=== PATIENT | female | born 1960 | race Caucasian/White ===

== ENCOUNTER → 2017-08-17 | Outpatient (CLI) | payer MEDICAID | END | disposition home or self-care (01) | LOC: RAD 10:15 | PROVIDERS: ATTEND Family Medicine | DX: M79.672 Pain in left foot (principal) ==

== ENCOUNTER → 2017-08-24 | Outpatient (CLI) | payer MEDICAID | END | disposition home or self-care (01) | LOC: CFH 09:39 | PROVIDERS: ATTEND Family Medicine | DX: Z12.31 Encounter for screening mammogram for malignant neoplasm of breast (principal); Z80.3 Family history of malignant neoplasm of breast | CPT/HCPCS: 77067 ==

== ENCOUNTER 2017-11-15 12:25 | Emergency (ER) | payer MEDICAID, OTHER ==
[~2017-11-15] VITALS: Ht 162.6 cm; Wt 55.2 kg
[2017-11-15 12:33] VITALS: BP 160/97
[2017-11-15] MEDS ORDERED: IBUPROFEN 200 MG TABLET ONE (13:24)
[2017-11-15] MEDS ORDERED: IBUPROFEN 200 MG TABLET PO ONE (13:30)
== END 2017-11-15 13:43 | disposition home or self-care (01) ==
LOC: ED 13:30
DX: S93.602A Unspecified sprain of left foot, initial encounter (principal); F17.200 Nicotine dependence, unspecified, uncomplicated; X58.XXXA Exposure to other specified factors, initial encounter; Y93.89 Activity, other specified; Y99.8 Other external cause status; Y92.89 Other specified places as the place of occurrence of the external cause
CPT/HCPCS: 99284

== ENCOUNTER 2019-07-14 12:05 | Day surgery (SDC) | payer MEDICAID, OTHER ==
[~2019-07-14] VITALS: Ht 162.6 cm; Wt 59.5 kg
[~2019-07-14 12:05] MED LIST: LISI-167 PO
[2019-07-14] MEDS ORDERED: CHLORHEXIDINE 15 ML UDC MM STA (12:21)
[2019-07-14 12:25] VITALS: BP 161/117
[2019-07-14] MEDS ORDERED: LACTATED RINGERS 1,000 ML IV ONE (12:30)
[2019-07-14] MEDS ORDERED: LIDOCAINE-MPF 1%, 2ML INFIL ONE (12:30)
[2019-07-14 13:54] VITALS: BP 158/96
[2019-07-14] MEDS ORDERED: BUPIVACAINE/PF-EPI 0.5% 1:200K ONE (15:20)
[2019-07-14] MEDS ORDERED: DEXAMETHASONE 4 MG/ML, 1ML ONE (15:33)
[2019-07-14] MEDS ORDERED: PROPOFOL 10 MG/ML, 20ML ONE (15:33)
[2019-07-14] MEDS ORDERED: CEFAZOLIN 1,000 MG ONE (15:33)
[2019-07-14] MEDS ORDERED: ONDANSETRON 2MG/ML, 2ML ONE (15:33)
[2019-07-14] MEDS ORDERED: MIDAZOLAM 1 MG/ML, 2ML ONE (15:34)
[2019-07-14] MEDS ORDERED: FENTANYL PF 100 MCG/2ML IV PRN (16:00)
[2019-07-14] MEDS ORDERED: OXYcodone 5 MG/5 ML ORAL.SOL UDC PO PRN (16:00)
[2019-07-14] MEDS ORDERED: LABETALOL 5MG/ML, 20ML IV PRN (16:00)
[2019-07-14] MEDS ORDERED: hydrALAzine 20 MG/ML, 1ML IV PRN (16:00)
[2019-07-14] MEDS ORDERED: ACETAMINOPHEN 325 MG TABLET PO PRN (16:00)
[2019-07-14] MEDS ORDERED: ONDANSETRON 2MG/ML, 2ML IVPush PRN (16:00)
== END 2019-07-14 17:35 | disposition home or self-care (01) ==
LOC: OUT 12:05
PROVIDERS: ATTEND Podiatrist Foot & Ankle Surgery
DX: L91.0 Hypertrophic scar (principal); Z11.59 Encounter for screening for other viral diseases; I10 Essential (primary) hypertension
CPT/HCPCS: 11421; 88300; 93005; J0690; J1100; J2250; J2405; J2704; J7120; U0001

== ENCOUNTER 2020-06-28 12:05 | Emergency (ER) | payer MEDICAID ==
[~2020-06-28] VITALS: Ht 162.6 cm; Wt 56.5 kg
[2020-06-28 12:26] VITALS: BP 160/101
== END 2020-06-28 13:48 | disposition home or self-care (01) ==
LOC: ED 13:10
DX: L03.031 Cellulitis of right toe (principal)
CPT/HCPCS: 99283